=== PATIENT | male | born 1935 | race Caucasian/White ===

== ENCOUNTER 2018-07-05 09:40 | Inpatient (IN) | payer MEDICARE ==
[~2018-07-05] VITALS: Ht 167.6 cm; Wt 54.1 kg
[~2018-07-05 09:40] MED LIST: ALBU2.5V5 INH; ALBU90OI61 INH; ASPI325 PO; AZIT250 PO; AZIT500 PO; BUPR150ER PO; CEPH500 PO; CLOP75 PO; CYCL10 PO; DELTASONE20 MG PO; DOXY100 PO; DULERA 200 MCG/13 GM INH; FLUSAL5005 IH; HYDACE5 PO; IBUP600 PO; IBUP800 PO; LEVO750 PO; METO50 PO; MIRT15 PO; MONT10T PO; PRED10 PO; PRED20 PO; Prednisone20 MG PO; ROSU10TA PO; ROSUVASTATIN CA20 MG PO; SPIRIVA; TIOT18 IH; Ultram50 MG PO
[2018-07-05 10:18] LABS: BASOPHILS ABSOLUTE AUTO 0.06 K/mm3 (0.00-0.23); BASOPHILS PERCENT AUTO 1 % (0-2); EOSINOPHILS ABSOLUTE AUTO 0.12 K/mm3 (0.00-0.68); EOSINOPHILS PERCENT AUTO 1 % (0-6); Hematocrit 42.1 % (37.0-53.0); Hemoglobin 13.2 g/dL (13.5-17.5); IMMATURE GRAN ABSOLUTE AUTO 0.05 K/mm3 (0.00-0.10); IMMATURE GRAN PERCENT AUTO 1 % (0-1); LYMPHOCYTES PERCENT AUTO 31 % (21-46); MONOCYTES ABSOLUTE AUTO 1.05 K/mm3 (0.16-1.47); MONOCYTES PERCENT AUTO 11 % (4-13); Mean Corpuscular HGB Conc 31.4 g/dL (31.5-36.5); Mean Corpuscular Volume 102 fL (80-100); NEUTROPHILS PERCENT AUTO 56 % (41-73); Platelet Count 287 K/mm3 (150-400); RDW Coefficient Variation 14.5 % (11.7-14.2); RDW Standard Deviation 54.8 fL (35.1-46.3); Red Blood Cell Count 4.12 M/mm3 (4.30-5.90); White Blood Cell Count 9.38 K/mm3 (4.00-11.30)
[2018-07-05 10:35] LABS: Troponin I <0.015 ng/mL (0.000-0.040)
[2018-07-05 10:39] LABS: Alanine Aminotransfer (ALT/SGP 16 U/L (12-78); Albumin, Blood 3.6 g/dL (3.4-5.0); Alk Phos 84 U/L (50-136); Anion Gap 4 mmol/L (6-16); Aspartate Aminotrans (AST/SGOT 25 U/L (12-37); Bilirubin, Total 0.4 mg/dL (0.1-1.0); Blood Urea Nitrogen 12 mg/dL (8-24); Bun/Creatinine Ratio 13.9 (12.0-20.0); CO2, Blood 34 mmol/L (21-32); Chloride, Blood 102 mmol/L (98-108); Creatinine, Blood 0.86 mg/dL (0.60-1.20); Globulin, Blood 3.7 g/dL (2.2-4.0); Glomerular Filtration Rate >60 (60-); Glucose, Blood 90 mg/dL (70-99); Potassium, Blood 4.2 mmol/L (3.5-5.5); Sodium, Blood 140 mmol/L (136-145); Total Protein, Blood 7.3 g/dL (6.4-8.2)
[2018-07-05 11:35] LABS: PCO2 Venous 67.5 mmHg (38-42); PO2 Venous 39.8 mmHg (38-42); pH Blood Venous 7.31 (7.34-7.37)
--- NOTE | 2018-07-05 18:19 | NUR ---
SHIFT SUMMARY. 1550 NEW ADMIT FOR COPD EXACERBATION. A&OX4, SBA TO BATHROOM SECONDARY LINES, SLIGHTLY UNSTEADY. PT IS ON HOME DOSE OF O2 2L NC. LUNGS ARE TIGHT AND EXPIRATORY WHEEZES THROUGHOUT. PT REQUIRED BREATHING TX AFTER RETURNING FROM BATHROOM, RT NOTIFIED. PT DENIES N/V. PT REPORTS MILD H/A. NO OTHER CHANGES.
[2018-07-05 19:31] LABS: Adenovirus Not Detected (NOT DETECT); Bordetella pertussis Not Detected (NOT DETECT); Chlamydophila pneumoniae Not Detected (NOT DETECT); Coronavirus 229E Not Detected (NOT DETECT); Coronavirus HKU1 Not Detected (NOT DETECT); Coronavirus NL63 Not Detected (NOT DETECT); Coronavirus OC43 Not Detected (NOT DETECT); Human Metapneumovirus Not Detected (NOT DETECT); Human Rhinovirus/Enterovirus Not Detected (NOT DETECT); Influenza A Not Detected (NOT DETECT); Influenza A/2009-H1 Not Detected (NOT DETECT); Influenza A/H1 Not Detected (NOT DETECT); Influenza A/H3 Not Detected (NOT DETECT); Influenza B Not Detected (NOT DETECT); Mycoplasma pneumoniae Not Detected (NOT DETECT); Parainfluenza Virus 1 Not Detected (NOT DETECT); Parainfluenza Virus 2 Not Detected (NOT DETECT); Parainfluenza Virus 3 Detected (NOT DETECT); Parainfluenza Virus 4 Not Detected (NOT DETECT); Respiratory Syncytial Virus Not Detected (NOT DETECT)
[2018-07-06 05:22] LABS: Anion Gap 6 mmol/L (6-16); Blood Urea Nitrogen 14 mg/dL (8-24); Bun/Creatinine Ratio 18.2 (12.0-20.0); CO2, Blood 31 mmol/L (21-32); Calcium, Blood 7.5 mg/dL (8.5-10.1); Chloride, Blood 102 mmol/L (98-108); Creatinine, Blood 0.77 mg/dL (0.60-1.20); Glomerular Filtration Rate >60 (60-); Glucose, Blood 128 mg/dL (70-99); Potassium, Blood 4.4 mmol/L (3.5-5.5); Sodium, Blood 139 mmol/L (136-145)
--- NOTE | 2018-07-06 07:15 | NUR ---
*SHIFT SUMMARY* PATIENT IS ALERT AND ORIENTED, NO COMPLAINTS OF PAIN. PATIENT HAD A COUPLE EPISODES OF FEELING SHORT OF BREATH THROUGHOUT THE NIGHT THAT WERE RELIEVED WITH BREATHING TREATMENTS AND RELAXATION TECHNIQUES. PATIENT WORE NASAL CANNULA THROUGHOUT THE NIGHT. PATIENT HAD A CIWA SCORE OF ONE THROUGHOUT THE NIGHT. NO NEW CHANGES TO PATIENT'S STATUS, CALL LIGHT WITHIN REACH. BED LOWERED AND LOCKED.
--- NOTE | 2018-07-06 16:16 | NUR ---
SHIFT SUMMARY THE PATIENT PRESENTED THIS MORNING WITH VITALS WNL, A&O X4 AND WITH LUNGS THAT WERE WHEEZEY THROUGHOUT. THE PATIENT WAS PUT IN DROPLET PRECAUTION FOR INFLUEZA. THE PATIENT'S IV WAS REPLACED WITH A 20 GA ON THE LEFT FOREARM. THE PATIENT HAS BEEN INDEPENDENT IN HIS ROOM AND CALLED WHEN HE NEEDED SOMETHING. THE PATIENT IS RESTING IN HIS CHAIR AT THIS TIME, WILL CONTINUE TO MONITOR.
--- NOTE | 2018-07-07 04:52 | NUR ---
*SHIFT SUMMARY* PATIENT IS ALERT AND ORIENTED. PATIENT SLEPT OFF AND ON THROUGHOUT THE NIGHT. PATIENT HAD A COUPLE EPISODES OF SOB. RT CAME TO EVALUATE AND TREAT PATIENT. PATIENT STATES HE HAS A HEADACHE AND HE FEELS HE NEEDS TO BE SITTING UP, BROUGHT A RECLINER IN FOR PATIENT TO REST IN. OTHERWISE NO NEW CHANGES IN STATUS. PATIENT TOLERATED SWALLOWING PILLS WHOLE WITH WATER. PATIENT DOES GET SOB WITH ACTIVITY. USES CALL LIGHT APPROPRIATELY. BED LOWERED AND LOCKED.
[2018-07-07 05:21] LABS: Anion Gap 3 mmol/L (6-16); Blood Urea Nitrogen 16 mg/dL (8-24); Bun/Creatinine Ratio 21.7 (12.0-20.0); CO2, Blood 34 mmol/L (21-32); Calcium, Blood 8.1 mg/dL (8.5-10.1); Chloride, Blood 101 mmol/L (98-108); Creatinine, Blood 0.74 mg/dL (0.60-1.20); Glomerular Filtration Rate >60 (60-); Glucose, Blood 132 mg/dL (70-99); Potassium, Blood 4.6 mmol/L (3.5-5.5); Sodium, Blood 138 mmol/L (136-145)
--- NOTE | 2018-07-07 16:17 | NUR ---
SHIFT SUMMARY THE PATIENT PRESENTED THIS MORNING WITH VITALS WNL, A&O X4, AND LUNGS THAT WERE TIGHT AND WHEEZEY THOUGHOUT. THE PATIENT COMPLAINED OF SOB, ANXIETY, AND NOT BEING ABLE TO SLEEP. DR. NIEVES STATED THAT SHE WOULD PUT ORDERS IN FOR MEDICATIONS FOR THE PATIENT. THE PATIENT HAS BEEN UP TO HIS RECLINER ALL SHIFT. THE PATIENT IS RESTING AT THIS TIME, WILL CONTINUE TO MONITOR.
--- NOTE | 2018-07-07 22:41 | NUR ---
MEDICATED PATIENT FOR SLEEP AND ANXIETY AROUND 1999 SEE EMAR. PATIENT HAS BEEN ASLEEP SINCE 2099 IN RECLINER CHAIR. PATIENT SWALLOWED BEDTIME PILLS WELL WITH PUDDING. PATIENT HAS NOT HAD ANY COMPLAINTS OF PAIN FOR ME.
--- NOTE | 2018-07-08 04:44 | NUR ---
*SHIFT SUMMARY* PATIENT IS ALERT AND ORIENTED. PATIENT REQUESTED THAT HE GET HIS SLEEPING PILLS WITH HIS 2100 MEDICATIONS. PATIENT STATES HE BREATHES BETTER WHEN SITTING UP IN RECLINER CHAIR. PATIENT SLEPT THROUGHOUT THE NIGHT. NO NEW CHANGES TO PATIENT'S STATUS. CALL LIGHT WITHIN REACH, BED LOWERED AND LOCKED.
[2018-07-08 05:36] LABS: Anion Gap 5 mmol/L (6-16); Blood Urea Nitrogen 16 mg/dL (8-24); Bun/Creatinine Ratio 21.6 (12.0-20.0); CO2, Blood 34 mmol/L (21-32); Calcium, Blood 7.9 mg/dL (8.5-10.1); Chloride, Blood 100 mmol/L (98-108); Creatinine, Blood 0.74 mg/dL (0.60-1.20); Glomerular Filtration Rate >60 (60-); Glucose, Blood 121 mg/dL (70-99); Potassium, Blood 4.2 mmol/L (3.5-5.5); Sodium, Blood 139 mmol/L (136-145)
--- NOTE | 2018-07-08 17:10 | NUR ---
SHIFT SUMMARY PT HAS BEEN SLEEPING A LOT OF THE SHIFT. NO COMPLAINTS OF PAIN THIS SHIFT. PT DOES REPORT FEELING LIGHT HEADED AT TIMES. THIS RN ENCOURAGED PT TO CALL BEFORE GETTING OUT OF CHAIR OR BED FOR SAFETY. THIS RN ALSO TOLD PT TO CALL SO WE COULD CHECK HIS BP WHILE STANDING TO SEE IF BECOMES HYPOTENSIVE AND CAUSING HIM TO FEEL LIGHT HEADED. NO FURTHER COMPLAINTS THIS SHIFT. NO ACUTE CHANGES. CALL LIGHT IN REACH. WILL CONTINUE TO MONITOR AND REPORT TO ONCOMING RN.
--- NOTE | 2018-07-08 17:27 | NUR ---
Met with Mr. Mattson to discuss Advanced Care Planning. We completed a POLST. He would like us to "try" CPR, "but if it looks like I won't come back, let me go." He does not want to be "on machines." He would like Limited interventions, and a defined trial of tube feeding. POlst signed by pt and awaiting physician signature. I will remain available.
--- NOTE | 2018-07-09 04:50 | NUR ---
SHIFT SUMMARY PT HAD A GOOD NIGHT. PT HAD A HEADACHE EARLY ON IN SHIFT AND WAS TX PER EMAR. PT RESPONDED WELL AND FELL ASLEEP IN HIS CHAIR. PT DID WAKE UP AND WANTED TO MOVE TO HIS CHAIR. PT EXPERIENCED INCREASED SOB WITH EXERTION. SOB RESOLVED WITH REST. PT IS CURRENTLY SLEEPING AND BREATHING EASY. CALL LIGHT IN REACH.
--- NOTE | 2018-07-09 06:08 | NUR ---
PT TRANSFERRED FROM BED TO CHAIR AND BECAME SHORT OF BREATH. IT IS TAKING PT SOME TIME TO RECOVER. IT DOES NOT TAKE MUCH EXERTION FOR PT TO BECOME SOB. PT HAS NO OTHER COMPLAINTS. RT EVALUATED PT WELL.
--- NOTE | 2018-07-09 17:24 | NUR ---
PT HAS BEEN AOX4 AND COOPERATIVE WITH CARE. PT UP IN CHAIR ALL DAY AND WORKED WITH PT IN THE AM. PT STATED HIS SINUSES HURT AND DR NIEVES ORDERED NASAL SPRAY AND HIS O2 WAS HUMIDIFIED. PT DOING WELL WILL CONTINUE TO MONITOR.
--- NOTE | 2018-07-10 06:43 | NUR ---
SHIFT SUMMARY: PT HAS ONE EPISODE OF SOB, INABILITY TO CATCH HIS BREATH 1X. RESOLVED BY BREATHING TX FROM RT. LS WHEEZE T/O. INDEPENDENT IN ROOM; USES CALL LIGHT APPROPRIATELY. A&O X 4. 2 L VIA NC; BASELINE. MEDS WHOLE IN VANILLA PUDDING. PRN CIWA SCORE OF 0. WILL CONT TO MONITOR AND PROVIDE CARE UNTIL PRESUMED BY ONCOMING RN.
--- NOTE | 2018-07-10 17:04 | NUR ---
SHIFT SUMMARY NO ACUTE CHANGES. PATIENT HAD SEVERAL BREATHING TREATMENTS THROUGHOUT SHIFT. PATIENT MEDICATED X 1 FOR ANXIETY. PATIENT WORKED WITH PT/OT. NAPPED MOST OF AFTERNOON. CALL LIGHT IN REACH, WILL CONTINUE TO MONITOR.
[2018-07-11 05:49] LABS: Anion Gap 6 mmol/L (6-16); Blood Urea Nitrogen 23 mg/dL (8-24); Bun/Creatinine Ratio 28.6 (12.0-20.0); CO2, Blood 35 mmol/L (21-32); Calcium, Blood 7.9 mg/dL (8.5-10.1); Chloride, Blood 99 mmol/L (98-108); Glomerular Filtration Rate >60 (60-); Glucose, Blood 126 mg/dL (70-99); Potassium, Blood 4.7 mmol/L (3.5-5.5); Sodium, Blood 140 mmol/L (136-145)
--- NOTE | 2018-07-11 06:09 | NUR ---
SHIFT SUMMARY PT IS A 83 Y/O M, ADMITTED FOR ACUTE COPD EXACERBATION. HE IS A&O X 4, AND INDEPENDENT IN THE ROOM. HE IS STILL REPORTING SOB, WORSE WITH EXERTION. HE IS ON 3L OF O2 VIA NC. VITALS REMAINED STABLE. HE DENIED ANY COMPLAINTS OF PAIN OR NAUSEA. NO ACUTE CHANGES IN PT CONDITION NOTED. WILL CONTINUE TO MONITOR AND TREAT PER EMAR UNTIL HAND OFF TO DAY SHIFT.
--- NOTE | 2018-07-11 11:18 | NUR ---
Pt visit this AM. Received report from Respiratory Therapy (Juan F) that Pt is considering hospice. Spoke with Pt and she reports that she is not ready for hospice and wants to continue treatment. She plans for the high risk readmission program for COPD. Will have hospitalist sign new POLST. Will remain available.
--- NOTE | 2018-07-11 17:22 | NUR ---
Initial Visit: Palliative care consult for advanced care planning and POLST. Pt is A&O and denies pain at this time. He reports dyspnea with exertion. Pt reports current regimen is managing his dyspnea. Engaged in therapeutic conversaton about goals of care and POLST. Pt already had POLST form completed and signed by hospitalist. Discussed options of care for him as disease process takes it's coarse including comfort care and hospice. He expresses interest with this option for future need but states he would like to continue fighting at this time. Pt reports no other concerns at this time. Faxed completed POLST to medical records and [place] POLST Registry. Plan to remain available.
--- NOTE | 2018-07-11 18:11 | NUR ---
SHIFT SUMMARY NO ACUTE CHANGES. PATIENT REPORTS HE IS FEELING BETTER TODAY. PATIENT MET WITH PALLIATIVE CARE NURSE TO DISCUSS HIS POLST. POLST SIGNED AND IN CHART. PATIENT WORKED WITH PT/OT. POSSIBLE DISCHARGE TO SNF WHEN MEDICALLY READY. CALL LIGHT IN REACH
--- NOTE | 2018-07-12 04:38 | NUR ---
*SHIFT SUMMARY* PATIENT IS ALERT AND ORIENTED. PATIENT TAKES PILLS WHOLE WITH PUDDING. ON 3L NASAL CANNULA THROUGH THE NIGHT. SLEPT IN THE RECLINER THROUGHOUT THE NIGHT. THIS MORNING PATIENT STATES HE FEELS ANXIOUS AND THAT HIS MIND IS RACING AND HAS A HEADACHE. THIS RN OFFERED TYLENOL FOR PAIN, PT STATES HE DOESN'T FEEL THAT WOULD HELP BUT WOULD LIKE SOMETHING FOR ANXIETY. WILL MEDICATE PATIENT FOR ANXIETY SEE EMAR. NO CHANGES IN ACUTE CONDITION, USES CALL LIGHT APPROPRIATELY.
--- NOTE | 2018-07-12 18:19 | NUR ---
SHIFT SUMMARY PT AXO THOUGH WANTED TO SLEEP THROUGHOUT THE DAY. VITAL SIGNS STABLE. PHYSICAL THERAPY IN TO WORK WITH PT, SEE NOTE. PT INDEPENDENT TO BATHROOM. SOB WITH EXERTION. CONTINUES TO BE ON 3L VIA NC. PT DENIES PAIN AND N/V. PT SLEEPING UP IN CHAIR THROUGHOUT THE SHIFT. CALL LIGHT WITHIN REACH. PT REQUESTED PUREE DIET DUE TO HIS OWN ANXIETY. PT STATES HE LIKES IT BECAUSE HE IS ABLE TO "GET IT DOWN" INSTEAD OF FEELING LIKE HE IS CHOKING. PT REQUESTED SOME WATER (THIN). NURSE EDUCATED PT ON RISKS BUT PT PERSISTS. CHARGE NURSE AWARE.
--- NOTE | 2018-07-13 04:39 | NUR ---
SHIFT SUMMARY PT AWAKE, SITTING IN RECLINER, DURING BS REPORT. NO ACUTE DISTRESS NOTED OR REPORTED. ADMITTED FOR COPD EXAC, CURRENTLY ON 3L NC; ON 2L BASELINE HOME O2. SOB W/EXERTION, BUT IMPROVING. LUNGS T/O DIMINISHED AND TIGHT WITH SCATTERED WHEEZES. REQUESTED XANAX FOR ANXIETY AT HS. PER SHIFT REPORT, PT SLEPT ALL DAY DURING THE DAY. HAS BEEN RESTING WELL IN BED THIS AM. DOES NOT LIKE TO WOKE UP FOR CARE WHEN SLEEPING. PILLS TAKEN WHOLE WITH PUDDING; TOLERATED WELL. POSSIBLE D/C TO SNF IF BED AVAILABLE.
[2018-07-13 05:33] LABS: Hematocrit 38.6 % (37.0-53.0); Hemoglobin 12.5 g/dL (13.5-17.5); Mean Corpuscular HGB 31.6 pg (26.0-34.0); Mean Corpuscular HGB Conc 32.4 g/dL (31.5-36.5); Mean Platelet Volume 9.1 fL (9.1-12.4); Platelet Count 304 K/mm3 (150-400); RDW Coefficient Variation 13.9 % (11.7-14.2); RDW Standard Deviation 49.8 fL (35.1-46.3); Red Blood Cell Count 3.95 M/mm3 (4.30-5.90)
[2018-07-13 05:35] LABS: Mean Corpuscular Volume 98 fL (80-100)
[2018-07-13 06:02] LABS: Anion Gap 5 mmol/L (6-16); Blood Urea Nitrogen 20 mg/dL (8-24); Bun/Creatinine Ratio 24.5 (12.0-20.0); CO2, Blood 35 mmol/L (21-32); Calcium, Blood 7.8 mg/dL (8.5-10.1); Chloride, Blood 100 mmol/L (98-108); Creatinine, Blood 0.82 mg/dL (0.60-1.20); Glomerular Filtration Rate >60 (60-); Glucose, Blood 82 mg/dL (70-99); Sodium, Blood 140 mmol/L (136-145)
--- NOTE | 2018-07-13 17:28 | NUR ---
PT HAS BEEN AOX4 AND PLEASANT WITH ALL CARE. PT WORKED WITH PHYSICAL THERAPY AND HAS BEEN IN HIS CHAIR ALL DAY. PT DOINGE WELL, NO DISTRESS NOTED.
--- NOTE | 2018-07-14 04:32 | NUR ---
SHIFT SUMMARY PT ADMITTED FOR COPD EXACERBATION. HE IS ON 2 LPM O2 AND CAN RECEIVE RESPIRATORY TX'S PRN. HE IS A 1 PERSON ASSIST. HE IS ON DYSPHAGIA PRECAUTIONS (NO STRAWS, MEDS WHOLE IN YOGURT/PUDDING), BUT HE CAN DRINK ICE WATER. HE IS AWAITING PLACEMENT IN A SNF. HE HAS A HX OF COPD, CAD, HTN, AND ETOH. HIS LAST CIWA (SCORE- 0) WAS 07/10, CIWA SCORES SINCE DC'D. HE IS A&O X4. NO REMARKABLE CHANGES DURING SHIFT.
--- NOTE | 2018-07-14 16:34 | NUR ---
SHIFT SUMMARY PATIENT GETS VERY [id number] SOB AFTER EXCERTION; UP SBA FWW. ON HOME DOSE OF O2. NO PIV IN OR NEEDED. PATIENT STILL FEELING "WEAK" HOPEFUL D/C TOMORROW
--- NOTE | 2018-07-15 04:11 | NUR ---
SHIFT SUMMARY PT HAD DIFFICULTY SLEEPING LAST NIGHT AND REQUESTED HIS PRN MELATONIN. PT IS A FULL CODE, A&O X4, 1 PERSON ASSIST, ON 2 LPM O2 VIA NC. HE IS ON DYSPHAGIA PRECAUTIONS AND TAKES HIS MEDS WHOLE W/PUDDING OR YOGURT. HE IS ON LOVENOX FOR DVT PREVENTION. NO COMPLAINTS OF PAIN OR DISCOMFORT THIS SHIFT. HX: COPD, CAD, HTN, ETOH. LAST BM ON 07/14. ON CONTACT PRECAUTIONS FOR PARAINFLUENZA. AWAITING PLACEMENT IN SNF, OCTOBER DC TODAY.
[2018-07-15] MEDS ORDERED: GUAI600T33 PO (14:24)
[2018-07-15] MEDS ORDERED: DELTASONE20 MG PO (14:25)
[2018-07-15] MEDS ORDERED: DEEP SEA44 ML (14:27)
--- NOTE | 2018-07-15 16:07 | NUR ---
PT DISCHARGED TO [facility]. REPORT GIVEN TO NURSE AT [facility]. PT TRANSPORTED BY [facility].
== END 2018-07-15 15:37 | disposition home or self-care (01) | DRG 191 ==
LOC: ER 09:40 → MEDS 15:10 → ENPENDDIS 07-15 13:09 → MEDS 07-15 15:37
PROVIDERS: Emergency Medicine; Internal Medicine; ADMIT Internal Medicine
DX: J44.1 Chronic obstructive pulmonary disease with (acute) exacerbation (principal); J96.11 Chronic respiratory failure with hypoxia; E87.2 Acidosis; J10.1 Influenza due to other identified influenza virus with other respiratory manifestations; I25.10 Atherosclerotic heart disease of native coronary artery without angina pectoris; I10 Essential (primary) hypertension; F41.9 Anxiety disorder, unspecified; G47.00 Insomnia, unspecified; R13.10 Dysphagia, unspecified; E78.5 Hyperlipidemia, unspecified; F17.210 Nicotine dependence, cigarettes, uncomplicated; Z74.09 Other reduced mobility; Z91.013 Allergy to seafood; Z99.81 Dependence on supplemental oxygen; I25.2 Old myocardial infarction; Z79.02 Long term (current) use of antithrombotics/antiplatelets; Z79.82 Long term (current) use of aspirin; Z79.899 Other long term (current) drug therapy
CPT/HCPCS: 31720; 36415; 71046; 80048; 80053; 82803; 83880; 84484; 85025; 85027; 87486; 87581; 87633; 87798; 92526; 92610; 93005; 93010; 94640; 94760; 96361; 96365; 96367; 96375; 97110; 97116; 97161; 97165; 97530; 97535; 99285-25; J0696; J1650; J2405; J2920; J3010; J3475; J7030

== ENCOUNTER 2018-08-03 10:02 | Emergency (ER) | payer MEDICARE, OTHER ==
[~2018-08-03] VITALS: Ht 165.1 cm; Wt 52.6 kg
[~2018-08-03 10:02] MED LIST changes: +DEEP SEA44 ML; +GUAI600T33 PO
[2018-08-03 10:36] LABS: BASOPHILS ABSOLUTE AUTO 0.05 K/mm3 (0.00-0.23); BASOPHILS PERCENT AUTO 1 % (0-2); EOSINOPHILS ABSOLUTE AUTO 0.09 K/mm3 (0.00-0.68); EOSINOPHILS PERCENT AUTO 1 % (0-6); Hematocrit 36.8 % (37.0-53.0); Hemoglobin 11.7 g/dL (13.5-17.5); IMMATURE GRAN ABSOLUTE AUTO 0.14 K/mm3 (0.00-0.10); IMMATURE GRAN PERCENT AUTO 1 % (0-1); LYMPHOCYTES ABSOLUTE AUTO 1.91 K/mm3 (0.84-5.20); LYMPHOCYTES PERCENT AUTO 18 % (21-46); MONOCYTES ABSOLUTE AUTO 1.32 K/mm3 (0.16-1.47); MONOCYTES PERCENT AUTO 12 % (4-13); Mean Corpuscular HGB 31.7 pg (26.0-34.0); Mean Corpuscular HGB Conc 31.8 g/dL (31.5-36.5); Mean Corpuscular Volume 100 fL (80-100); Mean Platelet Volume 8.7 fL (9.1-12.4); NEUTROPHILS ABSOLUTE AUTO 7.43 K/mm3 (1.96-9.15); NEUTROPHILS PERCENT AUTO 68 % (41-73); Platelet Count 460 K/mm3 (150-400); RDW Coefficient Variation 12.9 % (11.7-14.2); RDW Standard Deviation 47.4 fL (35.1-46.3); Red Blood Cell Count 3.69 M/mm3 (4.30-5.90); White Blood Cell Count 10.94 K/mm3 (4.00-11.30)
[2018-08-03 10:51] LABS: Alanine Aminotransfer (ALT/SGP 16 U/L (12-78); Albumin, Blood 2.3 g/dL (3.4-5.0); Albumin/Globulin Ratio 0.5 (0.8-1.8); Alk Phos 77 U/L (50-136); Anion Gap 8 mmol/L (6-16); Aspartate Aminotrans (AST/SGOT 20 U/L (12-37); Bilirubin, Total 0.5 mg/dL (0.1-1.0); Blood Urea Nitrogen 6 mg/dL (8-24); CO2, Blood 30 mmol/L (21-32); Calcium, Blood 7.5 mg/dL (8.5-10.1); Chloride, Blood 96 mmol/L (98-108); Creatinine, Blood 0.54 mg/dL (0.60-1.20); Globulin, Blood 4.6 g/dL (2.2-4.0); Glomerular Filtration Rate >60 (60-); Glucose, Blood 93 mg/dL (70-99); Potassium, Blood 4.3 mmol/L (3.5-5.5); Sodium, Blood 134 mmol/L (136-145); Total Protein, Blood 6.9 g/dL (6.4-8.2); Troponin I <0.015 ng/mL (0.000-0.040)
[2018-08-03] MEDS ORDERED: LEVO750 PO (12:55)
[2018-08-03] MEDS ORDERED: Lasix20 MG PO (12:55)
== END 2018-08-03 13:10 | disposition home or self-care (01) ==
LOC: ER 10:02
PROVIDERS: Emergency Medicine
DX: R60.0 Localized edema (principal); J44.9 Chronic obstructive pulmonary disease, unspecified; I25.10 Atherosclerotic heart disease of native coronary artery without angina pectoris; I10 Essential (primary) hypertension; F17.210 Nicotine dependence, cigarettes, uncomplicated; Z99.81 Dependence on supplemental oxygen; Z91.013 Allergy to seafood; Z79.899 Other long term (current) drug therapy; Z79.82 Long term (current) use of aspirin; Z79.02 Long term (current) use of antithrombotics/antiplatelets; Z79.52 Long term (current) use of systemic steroids
CPT/HCPCS: 36415; 71046; 80053; 83880; 84484; 85025; 93005; 93010; 99284-25

== ENCOUNTER 2018-08-05 05:30 | Inpatient (IN) | payer MEDICARE ==
[~2018-08-05] VITALS: Ht 167.6 cm; Wt 53.8 kg
[~2018-08-05 05:30] MED LIST changes: +Lasix20 MG PO
[2018-08-05 06:03] LABS: BASOPHILS ABSOLUTE AUTO 0.06 K/mm3 (0.00-0.23); BASOPHILS PERCENT AUTO 1 % (0-2); EOSINOPHILS ABSOLUTE AUTO 0.01 K/mm3 (0.00-0.68); EOSINOPHILS PERCENT AUTO 0 % (0-6); Hematocrit 41.7 % (37.0-53.0); Hemoglobin 12.9 g/dL (13.5-17.5); IMMATURE GRAN ABSOLUTE AUTO 0.15 K/mm3 (0.00-0.10); IMMATURE GRAN PERCENT AUTO 1 % (0-1); LYMPHOCYTES ABSOLUTE AUTO 1.45 K/mm3 (0.84-5.20); LYMPHOCYTES PERCENT AUTO 12 % (21-46); MONOCYTES ABSOLUTE AUTO 1.39 K/mm3 (0.16-1.47); MONOCYTES PERCENT AUTO 12 % (4-13); Mean Corpuscular HGB 30.9 pg (26.0-34.0); Mean Corpuscular HGB Conc 30.9 g/dL (31.5-36.5); Mean Corpuscular Volume 100 fL (80-100); Mean Platelet Volume 8.5 fL (9.1-12.4); NEUTROPHILS ABSOLUTE AUTO 8.62 K/mm3 (1.96-9.15); NEUTROPHILS PERCENT AUTO 74 % (41-73); Platelet Count 490 K/mm3 (150-400); RDW Coefficient Variation 12.8 % (11.7-14.2); RDW Standard Deviation 47.4 fL (35.1-46.3); Red Blood Cell Count 4.18 M/mm3 (4.30-5.90); White Blood Cell Count 11.68 K/mm3 (4.00-11.30)
[2018-08-05 06:34] LABS: Troponin I 0.019 ng/mL (0.000-0.040)
[2018-08-05 06:38] LABS: Alanine Aminotransfer (ALT/SGP 15 U/L (12-78); Albumin, Blood 2.7 g/dL (3.4-5.0); Albumin/Globulin Ratio 0.6 (0.8-1.8); Alk Phos 91 U/L (50-136); Anion Gap 16 mmol/L (6-16); Aspartate Aminotrans (AST/SGOT 24 U/L (12-37); Bilirubin, Total 0.6 mg/dL (0.1-1.0); Blood Urea Nitrogen 12 mg/dL (8-24); Bun/Creatinine Ratio 19.1 (12.0-20.0); CO2, Blood 24 mmol/L (21-32); Calcium, Blood 8.6 mg/dL (8.5-10.1); Chloride, Blood 92 mmol/L (98-108); Creatinine, Blood 0.63 mg/dL (0.60-1.20); Globulin, Blood 4.8 g/dL (2.2-4.0); Glomerular Filtration Rate >60 (60-); Glucose, Blood 44 mg/dL (70-99); Potassium, Blood 4.5 mmol/L (3.5-5.5); Sodium, Blood 132 mmol/L (136-145); Total Protein, Blood 7.5 g/dL (6.4-8.2)
[2018-08-05 08:33] LABS: PCO2 Arterial 51.9 mmHg (35-45); PO2 Arterial 60.7 mmHg (80-100); pH Blood Arterial 7.39 (7.35-7.45)
[2018-08-05] MEDS ORDERED: **incomplete med rec (12:12)
[2018-08-05] MEDS ORDERED: PROAIR RESPICL90 MCG INH (12:18)
[2018-08-05] MEDS ORDERED: ALBU3IS INH (12:20)
[2018-08-05] MEDS ORDERED: ASPI81CH PO (12:21)
[2018-08-05] MEDS ORDERED: CLOP75 PO (12:22)
[2018-08-05] MEDS ORDERED: METO25ER PO (12:24)
[2018-08-05] MEDS ORDERED: MIRT15 PO (12:25)
[2018-08-05] MEDS ORDERED: MONT10T PO (12:26)
[2018-08-05] MEDS ORDERED: BUDE6HFA INH (12:26)
[2018-08-05] MEDS ORDERED: ALBU2.5V5 INH (12:28)
[2018-08-05] MEDS ORDERED: ROSUVASTATIN CA20 MG PO (12:29)
[2018-08-05] MEDS ORDERED: BUPR150ER PO (12:30)
[2018-08-05] MEDS ORDERED: COMBIVENT RESPIM4 GM INH (12:31)
[2018-08-05 17:37] LABS: Influenza A Negative (NEGATIVE); Influenza B Negative (NEGATIVE)
--- NOTE | 2018-08-05 19:12 | NUR ---
SHIFT SUMMARY: PATIENT ADMIT FROM ED THIS SHIFT; FULL ADMISSION COMPLETED. PT A&O; CALM AND COOEPRATIVE WITH CARE. PATIENT [id number] R/T SINUS CONGESTION. NO C/O PAIN SINCE ARRIVAL ON MEDICAL. X-RAY REVEALS RLL PNA & COPD; LUNGS COARSE/DIM. POOR DENTITION; PUREE DIET. TELE IN PLACE; SR @ 85 PER CATEGORY PLANNER. POOR ORAL INTAKE; POC GLUCOSE CHECKS PRN FOR S/SX OF HYPOGLYCEMIA; POC GLUCOSE MEASURED AT 122 @ 1616. IV ABX CONTINUING. REPORT GIVEN TO ONCOMING RN.
[2018-08-06 05:25] LABS: BASOPHILS ABSOLUTE AUTO 0.04 K/mm3 (0.00-0.23); BASOPHILS PERCENT AUTO 0 % (0-2); EOSINOPHILS ABSOLUTE AUTO 0.03 K/mm3 (0.00-0.68); EOSINOPHILS PERCENT AUTO 0 % (0-6); Hematocrit 35.7 % (37.0-53.0); IMMATURE GRAN ABSOLUTE AUTO 0.09 K/mm3 (0.00-0.10); IMMATURE GRAN PERCENT AUTO 1 % (0-1); LYMPHOCYTES ABSOLUTE AUTO 1.51 K/mm3 (0.84-5.20); LYMPHOCYTES PERCENT AUTO 14 % (21-46); MONOCYTES ABSOLUTE AUTO 1.39 K/mm3 (0.16-1.47); MONOCYTES PERCENT AUTO 13 % (4-13); Mean Corpuscular HGB 30.8 pg (26.0-34.0); Mean Corpuscular HGB Conc 30.8 g/dL (31.5-36.5); Mean Corpuscular Volume 100 fL (80-100); Mean Platelet Volume 8.5 fL (9.1-12.4); NEUTROPHILS ABSOLUTE AUTO 7.42 K/mm3 (1.96-9.15); NEUTROPHILS PERCENT AUTO 71 % (41-73); Platelet Count 463 K/mm3 (150-400); RDW Coefficient Variation 12.6 % (11.7-14.2); RDW Standard Deviation 46.2 fL (35.1-46.3); Red Blood Cell Count 3.57 M/mm3 (4.30-5.90); White Blood Cell Count 10.48 K/mm3 (4.00-11.30)
--- NOTE | 2018-08-06 05:29 | NUR ---
VSS, AFEBRILE, A/O, 20G L FA, BED ALARM, TELE: NSR, 2.5L NC, C/O INSOMNIA AND NOT GETTING ENOUGHT REST, ALWAYS TIRED ALL DAY LONG. SBA TO BR, IRRITABLE OVER NOC, CLUSTER CARE FOR PT'S COMFORT.
[2018-08-06 06:17] LABS: Albumin, Blood 2.1 g/dL (3.4-5.0); Anion Gap 4 mmol/L (6-16); Blood Urea Nitrogen 7 mg/dL (8-24); Bun/Creatinine Ratio 9.3 (12.0-20.0); CO2, Blood 37 mmol/L (21-32); Calcium, Blood 8.1 mg/dL (8.5-10.1); Chloride, Blood 96 mmol/L (98-108); Creatinine, Blood 0.75 mg/dL (0.60-1.20); Glomerular Filtration Rate >60 (60-); Glucose, Blood 100 mg/dL (70-99); Phosphorus, Blood 1.9 mg/dL (2.5-4.9); Potassium, Blood 4.1 mmol/L (3.5-5.5); Sodium, Blood 137 mmol/L (136-145)
--- NOTE | 2018-08-06 12:23 | NUR ---
THIS PT GAVE ME PERMISSION TO CARE FOR HIM ON 08/07/2018.
--- NOTE | 2018-08-06 18:01 | NUR ---
SHIFT SUMMARY OX3; PLEASANT, COOPERATIVE. AMBULATED IN HALLWAY TODAY FOR SHORT DISTANCE BECAME SLIGHTLY SOB AND DIZZY AFTER WALKING DOWN TO NURSES STATION AND BACK. DENIES ANY PAIN. PUREED DIET. GOOD PO INTAKE TODAY. STANDBY ASSIST FWW. FROM NURSING FACILITY.
--- NOTE | 2018-08-07 05:16 | NUR ---
08/07/18 0515 PT SLEEPING WELL THIS SHIFT. STATED EARLIER THAT HE IS JUST VERY TIRED. VITALS STABLE THIS AM AND FEVER DOWN. HEART MONITOR STABLE AT SR TO ST AT 102. NO COMPLAINTS OF PAIN THIS AM.
[2018-08-07 05:21] LABS: BASOPHILS ABSOLUTE AUTO 0.04 K/mm3 (0.00-0.23); BASOPHILS PERCENT AUTO 0 % (0-2); EOSINOPHILS ABSOLUTE AUTO 0.06 K/mm3 (0.00-0.68); EOSINOPHILS PERCENT AUTO 1 % (0-6); Hematocrit 32.4 % (37.0-53.0); Hemoglobin 10.1 g/dL (13.5-17.5); IMMATURE GRAN ABSOLUTE AUTO 0.09 K/mm3 (0.00-0.10); IMMATURE GRAN PERCENT AUTO 1 % (0-1); LYMPHOCYTES ABSOLUTE AUTO 1.59 K/mm3 (0.84-5.20); LYMPHOCYTES PERCENT AUTO 15 % (21-46); MONOCYTES ABSOLUTE AUTO 1.34 K/mm3 (0.16-1.47); MONOCYTES PERCENT AUTO 12 % (4-13); Mean Corpuscular HGB 31.4 pg (26.0-34.0); Mean Corpuscular HGB Conc 31.2 g/dL (31.5-36.5); Mean Corpuscular Volume 101 fL (80-100); Mean Platelet Volume 8.6 fL (9.1-12.4); NEUTROPHILS ABSOLUTE AUTO 7.88 K/mm3 (1.96-9.15); NEUTROPHILS PERCENT AUTO 72 % (41-73); Platelet Count 406 K/mm3 (150-400); RDW Coefficient Variation 12.7 % (11.7-14.2); RDW Standard Deviation 47.1 fL (35.1-46.3); Red Blood Cell Count 3.22 M/mm3 (4.30-5.90)
[2018-08-07 05:56] LABS: Albumin, Blood 1.9 g/dL (3.4-5.0); Anion Gap 0 mmol/L (6-16); Blood Urea Nitrogen 6 mg/dL (8-24); Bun/Creatinine Ratio 11.1 (12.0-20.0); CO2, Blood 40 mmol/L (21-32); Calcium, Blood 7.7 mg/dL (8.5-10.1); Chloride, Blood 98 mmol/L (98-108); Creatinine, Blood 0.54 mg/dL (0.60-1.20); Glomerular Filtration Rate >60 (60-); Glucose, Blood 106 mg/dL (70-99); Phosphorus, Blood 2.4 mg/dL (2.5-4.9); Potassium, Blood 3.7 mmol/L (3.5-5.5); Sodium, Blood 138 mmol/L (136-145)
--- NOTE | 2018-08-07 18:23 | NUR ---
SHIFT SUMMARY AMBULATED IN HALLWAY WITH PT. OX3. PLEASANT, CALM COOPERATIVE. STANDBY ASSIST TO BATHROOM. BOWEL CARE STARTED PER PT REQUEST. LIVES AT HOME ALONE BUT HAS HAD A RECENT STAY AT [facility]. NO VISITORS TODAY. REMAINS WEAK BUT AMBULATORY. CXR REPEATED TODAY.
[2018-08-08 06:00] LABS: BASOPHILS ABSOLUTE AUTO 0.04 K/mm3 (0.00-0.23); BASOPHILS PERCENT AUTO 0 % (0-2); EOSINOPHILS ABSOLUTE AUTO 0.06 K/mm3 (0.00-0.68); EOSINOPHILS PERCENT AUTO 1 % (0-6); Hemoglobin 10.1 g/dL (13.5-17.5); IMMATURE GRAN ABSOLUTE AUTO 0.11 K/mm3 (0.00-0.10); IMMATURE GRAN PERCENT AUTO 1 % (0-1); LYMPHOCYTES ABSOLUTE AUTO 1.63 K/mm3 (0.84-5.20); LYMPHOCYTES PERCENT AUTO 14 % (21-46); MONOCYTES ABSOLUTE AUTO 1.24 K/mm3 (0.16-1.47); MONOCYTES PERCENT AUTO 10 % (4-13); Mean Corpuscular HGB Conc 31.6 g/dL (31.5-36.5); Mean Platelet Volume 8.8 fL (9.1-12.4); NEUTROPHILS ABSOLUTE AUTO 8.81 K/mm3 (1.96-9.15); NEUTROPHILS PERCENT AUTO 74 % (41-73); Platelet Count 419 K/mm3 (150-400); RDW Coefficient Variation 12.7 % (11.7-14.2); RDW Standard Deviation 45.5 fL (35.1-46.3); Red Blood Cell Count 3.26 M/mm3 (4.30-5.90); White Blood Cell Count 11.89 K/mm3 (4.00-11.30)
[2018-08-08 06:11] LABS: Mean Corpuscular Volume 98 fL (80-100)
[2018-08-08 06:21] LABS: Anion Gap 3 mmol/L (6-16); Blood Urea Nitrogen 6 mg/dL (8-24); Bun/Creatinine Ratio 12.1 (12.0-20.0); CO2, Blood 35 mmol/L (21-32); Chloride, Blood 99 mmol/L (98-108); Creatinine, Blood 0.49 mg/dL (0.60-1.20); Glomerular Filtration Rate >60 (60-); Glucose, Blood 93 mg/dL (70-99); Sodium, Blood 137 mmol/L (136-145)
--- NOTE | 2018-08-08 06:26 | NUR ---
SHIFT SUMMARY PT SLEPT WELL T/O NIGHT. AOX4. VSS. DENIES N/V. REPORTS A HEADACHE FOR THE LAST 2 DAYS, MEDICATED W/TYLENOL PER ORDERS FOR 5/10 PAIN. PT ALSO MEDICATED 1 OTHER TIME W/TYLENOL BECAUSE PT REPORTED "CHILLS" BUT FELT HOT TO TOUCH W/O HIGH TEMPERATURE, PT DID HAVE LOTS OF BLANKETS ON & WOULD NOT LET ME TAKE ANY OFF. PT REPORTS SOB EVEN @REST, MEDICATED W/BREATHING TX & REPORTS THEY HELP HIS BREATHING. PT ON 3L W/SPO2 @90-92%. PT IS IRRITABLE W/STAFF @TIMES. CALL LIGHT IS IN REACH & I WILL CONT TO MONITOR PT.
--- NOTE | 2018-08-08 17:28 | NUR ---
SUMMARY PT RESTING QUIETLY IN BED, WAKES EASILY, PT HAS BEEN UP IN THE ROOM WITH MIN ASSIST, BUT GETS DYSPNEIC VERY QUICKLY, PT IS PLEASANT AND COOPERATIVE WITH CARE, VSS, NO ACUTE CHANGES, WILL CONT TO MONITOR
[2018-08-09 05:56] LABS: BASOPHILS ABSOLUTE AUTO 0.05 K/mm3 (0.00-0.23); BASOPHILS PERCENT AUTO 1 % (0-2); EOSINOPHILS ABSOLUTE AUTO 0.05 K/mm3 (0.00-0.68); EOSINOPHILS PERCENT AUTO 1 % (0-6); Hematocrit 33.4 % (37.0-53.0); Hemoglobin 10.4 g/dL (13.5-17.5); IMMATURE GRAN ABSOLUTE AUTO 0.09 K/mm3 (0.00-0.10); IMMATURE GRAN PERCENT AUTO 1 % (0-1); LYMPHOCYTES ABSOLUTE AUTO 1.89 K/mm3 (0.84-5.20); LYMPHOCYTES PERCENT AUTO 18 % (21-46); MONOCYTES ABSOLUTE AUTO 1.29 K/mm3 (0.16-1.47); MONOCYTES PERCENT AUTO 12 % (4-13); Mean Corpuscular HGB 31.2 pg (26.0-34.0); Mean Corpuscular HGB Conc 31.1 g/dL (31.5-36.5); Mean Corpuscular Volume 100 fL (80-100); Mean Platelet Volume 8.9 fL (9.1-12.4); NEUTROPHILS ABSOLUTE AUTO 7.33 K/mm3 (1.96-9.15); NEUTROPHILS PERCENT AUTO 68 % (41-73); Platelet Count 488 K/mm3 (150-400); RDW Coefficient Variation 12.9 % (11.7-14.2); RDW Standard Deviation 47.9 fL (35.1-46.3); Red Blood Cell Count 3.33 M/mm3 (4.30-5.90)
--- NOTE | 2018-08-09 06:40 | NUR ---
SHIFT SUMMARY PT SLEPT WELL T/O NIGHT. AOX4. DENIES N/V. REPORTS 5/10 PAIN FOR A HEADACHE, MEDICATED 1X W/TYLENOL PER ORDERS. REPORTS SOB AFTER GETTING UP & WALKING TO RESTROOM OR W/ANY EXERTION, DESCRIBES IT "IT FEELS LIKE A BAND IS SQUEEZING AROUND MY CHEST & MAKING IT SO I CAN'T BREATH." PT GIVEN MULTIPLE BREATHING TX PRN PER ORDERS. SPO2 >90% ON 2.5L. PT CAN BE IRRITABLE W/STAFF @TIMES. CALL LIGHT IS IN REACH & I WILL CONT TO MONITOR PT.
--- NOTE | 2018-08-09 17:20 | NUR ---
SUMMARY PT RESTING IN BED WATCHING TV, PT HAS BEEN PLEASANT AND COOPERATIVE WITH CARE, PT WORKED WITH THERAPY TODAY, PLAN TO GO TO SNF SAT OR SUN, PT STILL NEEDS TO HAVE A BM, BOWEL CARE STARTED, PT DRINKING PRUNE JUICE, VSS, NO ACUTE CHANGES, WILL CONT TO MONITOR
[2018-08-10 05:04] LABS: BASOPHILS ABSOLUTE AUTO 0.05 K/mm3 (0.00-0.23); BASOPHILS PERCENT AUTO 1 % (0-2); EOSINOPHILS ABSOLUTE AUTO 0.04 K/mm3 (0.00-0.68); EOSINOPHILS PERCENT AUTO 0 % (0-6); Hematocrit 32.3 % (37.0-53.0); IMMATURE GRAN ABSOLUTE AUTO 0.09 K/mm3 (0.00-0.10); IMMATURE GRAN PERCENT AUTO 1 % (0-1); LYMPHOCYTES ABSOLUTE AUTO 1.96 K/mm3 (0.84-5.20); LYMPHOCYTES PERCENT AUTO 20 % (21-46); MONOCYTES ABSOLUTE AUTO 1.15 K/mm3 (0.16-1.47); MONOCYTES PERCENT AUTO 12 % (4-13); Mean Corpuscular HGB 30.6 pg (26.0-34.0); Mean Corpuscular Volume 99 fL (80-100); Mean Platelet Volume 8.7 fL (9.1-12.4); NEUTROPHILS ABSOLUTE AUTO 6.32 K/mm3 (1.96-9.15); NEUTROPHILS PERCENT AUTO 66 % (41-73); Platelet Count 462 K/mm3 (150-400); RDW Coefficient Variation 12.8 % (11.7-14.2); RDW Standard Deviation 46.4 fL (35.1-46.3); Red Blood Cell Count 3.27 M/mm3 (4.30-5.90); White Blood Cell Count 9.61 K/mm3 (4.00-11.30)
[2018-08-10 05:50] LABS: Anion Gap 4 mmol/L (6-16); Blood Urea Nitrogen 6 mg/dL (8-24); Bun/Creatinine Ratio 9.5 (12.0-20.0); CO2, Blood 38 mmol/L (21-32); Calcium, Blood 8.4 mg/dL (8.5-10.1); Chloride, Blood 94 mmol/L (98-108); Creatinine, Blood 0.63 mg/dL (0.60-1.20); Glomerular Filtration Rate >60 (60-); Glucose, Blood 105 mg/dL (70-99); Sodium, Blood 136 mmol/L (136-145)
--- NOTE | 2018-08-10 06:30 | NUR ---
pt had several bowel movements with agressive bowel care. he first had pelleted small stool then medium loose stool. he had sat 99% on 3 l nc. up in room independent. co headache pain relieved by tylenol 650 mg po x 1.
--- NOTE | 2018-08-10 16:46 | NUR ---
SUMMARY- PT ALERT AND INDEPENDANT IN ROOM TO BATHROOM. PT HAVING LOOSE STOOLS TODAY S/P LAXATIVES. LUNGS WITH CRACKLES IN THE BASES. MAINTAINING SATS ON 3L 02. STATES PRODUCTIVE COUGH THAT HE SWALLOWS SECRETIONS. HAS OCCASIONAL COUGHING EPISODES AND CAN'T STOP, CALLED [facility] AND OBTAINED ORDER FOR CEACOL LOZENGE. HELPFUL TO RELEIVE COUGH. TOLERATING FOOD AND FLUIDS AND ASKED FOR SNACK INBETWEEN LUNCH AND DINNER. TOLERATES ACTIVITY WITH MIN DYSPNIA ON EXERTION. WILL REOPRT TO STACY HUIZAR.
--- NOTE | 2018-08-11 04:17 | NUR ---
83 year old Male smoker daily for 70 plus years educated on hazards of smoking and tips for smoking cessation. PT encouraged to stop smoking and he says he has no plans to stop to throw the educational materials in the trash. Pt says he has attempted to stop smoking multiple times without success and everyone he knows smokes. on oxygen 3 l nc and sats greater than 90%. constipation relieved with agressive bowel care. appetite improved. tolerating diet and activity, baseline oxygen use. able to communicate. Scheduled and PRN neb helpful for co severe dyspnea. PT educated on role of tobacco smoke in acute resp failure, copd.
[2018-08-11 09:35] LABS: Percent Saturation 9.1 % (20.0-50.0)
--- NOTE | 2018-08-11 16:28 | NUR ---
SHIFT SUMMARY NO CHANGES IN ASSESSMENT AT THIS TIME. VSS. PT IND IN ROOM & BATHROOM. PT STATES HE IS NO LONGER CONSTIPATED. PT ON 2.5L O2 VIA NC. PT COOPERATIVE THIS SHIFT. PT RESTING IN BED. CALL LIGHT IN REACH. DENIES OTHER NEEDS AT THIS TIME. WILL CONTINUE TO MONITOR UNTIL TURNOVER IS COMPLETE.
--- NOTE | 2018-08-12 04:23 | NUR ---
PT APPEARS MORE IRRITABLE AND DYSPENIC THIS SHIFT. CALL FREQUENTLY FOR NEB TREATMENT. DENIES PAIN OR CONSTIPATION, SOB AT REST OR WITH ACTIVITY. CONTINUES ON BASELINE 2.5 TO 3 L NC OXYGEN AND NEB USE. SAYS HE WILL NOT STOP SMOKING ALL HIS FRIENDS AND FAMILY SMOKE. ENCOURAGED CESSATION .
[2018-08-12 05:32] LABS: Hematocrit 32.3 % (37.0-53.0); Mean Corpuscular HGB 30.5 pg (26.0-34.0); Mean Corpuscular Volume 99 fL (80-100); Mean Platelet Volume 8.6 fL (9.1-12.4); Platelet Count 493 K/mm3 (150-400); RDW Coefficient Variation 12.9 % (11.7-14.2); RDW Standard Deviation 46.5 fL (35.1-46.3); Red Blood Cell Count 3.28 M/mm3 (4.30-5.90)
[2018-08-12 06:01] LABS: Anion Gap 3 mmol/L (6-16); Blood Urea Nitrogen 6 mg/dL (8-24); Bun/Creatinine Ratio 9.2 (12.0-20.0); CO2, Blood 35 mmol/L (21-32); Calcium, Blood 8.1 mg/dL (8.5-10.1); Chloride, Blood 98 mmol/L (98-108); Creatinine, Blood 0.65 mg/dL (0.60-1.20); Glomerular Filtration Rate >60 (60-); Glucose, Blood 91 mg/dL (70-99); Phosphorus, Blood 2.4 mg/dL (2.5-4.9); Potassium, Blood 4.4 mmol/L (3.5-5.5); Sodium, Blood 136 mmol/L (136-145)
--- NOTE | 2018-08-12 17:11 | NUR ---
SHIFT SUMMARY PT AXO, PLEASANT AND MOSTLY COOPERATIVE WITH CARE THOUGH REFUSED SMOKING CESSATION EDUCATION. NO ACUTE CHANGES THIS SHIFT. PT REPORTS BOREDOM R/T NOT BEING ABLE TO WATCH TELEVISION WITH THE POWER OUTAGE. BED IN LOW POSITION, CALL LIGHT WITHIN REACH.
--- NOTE | 2018-08-13 04:07 | NUR ---
SHIFT SUMMARY: PT IS ALERT AND ORIENTED. PT IS CALM AND COOPERATIVE WITH CARE. PT CALLS APPROPRIATELY. PT IS A STANDBY ASSIST FOR TRANSFERS AND AMBULATION. PT REPORTS SOB UPON EXERTION, O2 2.5 L VIA NC, BASELINE. PT DENIES PAIN, NAUSEA, AND VOMITING. PT SLEPT MUCH OF THE NIGHT. NO ACUTE CHANGES OR COMPLICATIONS THIS SHIFT. BED IN LOW POSITION, CALL LIGHT WITHIN REACH.
--- NOTE | 2018-08-13 17:39 | NUR ---
PT A/OX3, PLEASANT AND COOPERATIVE, THE PT IS UP IND IN HIS ROOM, THE PT IS ON 3L/MIN O2 VIA NC, WHICH THE PT STATES IS HIS BASE LINE 2-3L/MIN, THE PT DENIED ANY PAIN TODAY, CALL LIGHT IN REACH, DISCHARGED PLANNED IN THE AM 08/14/18, NO OTHER CHANGES NOTICED THIS SHIFT
--- NOTE | 2018-08-14 04:28 | NUR ---
SHIFT SUMMARY NO ACUTE CHANGES. PT CONTINUED ON 3 L O2, WEARING 2-3 L AT BASELINE. INDEPENDENT IN THE ROOM. NO COMPLAINTS OF PAIN OR DISCOMFORT. SLEPT WELL WHEN NOT BEING WOKEN BY STAFF. PLAN TO D/C HOME TODAY WHEN PT'S RIDE IS AVAILABLE. WILL CONTINUE TO MONITOR AND REPORT TO DAY RN.
[2018-08-14] MEDS ORDERED: ASPI81CH PO (11:33)
[2018-08-14] MEDS ORDERED: CEPACOL SORE T1 EACH MM (11:37)
[2018-08-14] MEDS ORDERED: K-Phos Origina500 MG PO (11:38)
[2018-08-14] MEDS ORDERED: GAVILAX17 GM PO (11:39)
[2018-08-14] MEDS ORDERED: DEEP SEA44 ML (11:41)
[2018-08-14] MEDS ORDERED: GUAI600T33 PO (11:44)
--- NOTE | 2018-08-14 12:57 | NUR ---
PT DISCHARGED PT VERBALIZED UNDERSTANDING OF THE DISCHARGE INSTRUCTIONS, PTS PERSCRIPTIONS WERE FAXED TO [facility] HE REQUESTED, THE PT WAS IRRITATED AT DISCHARGE AND DECLINED TO TAKE SOME OF HIS BELONGINGS WITH HIM, THE PT WAS TRANSFERED VIA WHEELCHAIR WITH OXYGEN TO THE ADMMISSIONS LOBBY TO [facility] HIS RIDE, WE POFFERED TO CALL THE [facility]AXI FOR HIM, HOWEVER HE SAID HE PREFERED TO DO IT HIMSELF AND WANTED TO WAIT DOWNSTAIRS FOR HIS RIDE
== END 2018-08-14 12:05 | disposition home health service (06) | DRG 871 ==
LOC: ER 05:30 → SURS 07:48 → MEDS 09:49 → EDBEDREQ 12:35 → ERHOLD 12:39 → MEDS 15:52
PROVIDERS: Emergency Medicine; Internal Medicine; ADMIT Internal Medicine
DX: A41.9 Sepsis, unspecified organism (principal); J96.21 Acute and chronic respiratory failure with hypoxia; J69.0 Pneumonitis due to inhalation of food and vomit; J44.1 Chronic obstructive pulmonary disease with (acute) exacerbation; J44.0 Chronic obstructive pulmonary disease with (acute) lower respiratory infection; R64 Cachexia; B37.0 Candidal stomatitis; J90 Pleural effusion, not elsewhere classified; E87.1 Hypo-osmolality and hyponatremia; R65.20 Severe sepsis without septic shock; Y95 Nosocomial condition; E16.2 Hypoglycemia, unspecified; D63.8 Anemia in other chronic diseases classified elsewhere; I25.10 Atherosclerotic heart disease of native coronary artery without angina pectoris; D47.3 Essential (hemorrhagic) thrombocythemia; K59.00 Constipation, unspecified; I10 Essential (primary) hypertension; F17.210 Nicotine dependence, cigarettes, uncomplicated; I25.2 Old myocardial infarction; Z99.81 Dependence on supplemental oxygen; Z95.5 Presence of coronary angioplasty implant and graft; Z91.013 Allergy to seafood; Z79.02 Long term (current) use of antithrombotics/antiplatelets; Z79.82 Long term (current) use of aspirin; Z79.52 Long term (current) use of systemic steroids; Z79.899 Other long term (current) drug therapy
CPT/HCPCS: 36415; 36600; 71046; 80048; 80053; 80069; 82607; 82728; 82746; 82803; 82947; 83540; 83550; 83605; 83880; 84145; 84484; 85025; 85027; 87040; 87804; 92610; 93005; 93010; 93306; 94640; 94667; 94760; 96365; 96366; 96367; 96372-59; 96375; 97110; 97116; 97162; 97530; 99284-25; 99285-25; J0456; J0696; J1650; J1940; J2405; J3010; J7050

== ENCOUNTER 2020-09-13 12:54 | Observation (INO) | payer MEDICARE, OTHER ==
[~2020-09-13] VITALS: Ht 167.6 cm; Wt 47.5 kg
[~2020-09-13 12:54] MED LIST changes: +**incomplete med rec; +ALBU3IS INH; +ASPI81CH PO; +Aspirin EC81 MG PO; +BUDE6HFA INH; +CEPACOL SORE T1 EACH MM; +COMBIVENT RESPIM4 GM INH; +K-Phos Origina500 MG PO; +METO25ER PO; +MIRALAX17 GM PO; +PROAIR RESPICL90 MCG INH
[2020-09-13 13:37] LABS: BASOPHILS ABSOLUTE AUTO 0.09 K/mm3 (0.00-0.23); BASOPHILS PERCENT AUTO 1 % (0-2); EOSINOPHILS ABSOLUTE AUTO 0.31 K/mm3 (0.00-0.68); EOSINOPHILS PERCENT AUTO 4 % (0-6); Hematocrit 40.6 % (37.0-53.0); Hemoglobin 13.2 g/dL (13.5-17.5); IMMATURE GRAN ABSOLUTE AUTO 0.04 K/mm3 (0.00-0.10); IMMATURE GRAN PERCENT AUTO 1 % (0-1); LYMPHOCYTES ABSOLUTE AUTO 1.98 K/mm3 (0.84-5.20); LYMPHOCYTES PERCENT AUTO 25 % (21-46); MONOCYTES ABSOLUTE AUTO 0.93 K/mm3 (0.16-1.47); MONOCYTES PERCENT AUTO 12 % (4-13); Mean Corpuscular HGB 31.9 pg (26.0-34.0); Mean Corpuscular HGB Conc 32.5 g/dL (31.5-36.5); Mean Corpuscular Volume 98 fL (80-100); Mean Platelet Volume 8.8 fL (9.1-12.4); NEUTROPHILS ABSOLUTE AUTO 4.72 K/mm3 (1.96-9.15); NEUTROPHILS PERCENT AUTO 59 % (41-73); Platelet Count 304 K/mm3 (150-400); RDW Coefficient Variation 12.3 % (11.7-14.2); RDW Standard Deviation 44.6 fL (35.1-46.3); Red Blood Cell Count 4.14 M/mm3 (4.30-5.90); White Blood Cell Count 8.07 K/mm3 (4.00-11.30)
[2020-09-13 13:58] LABS: Alanine Aminotransfer (ALT/SGP 21 U/L (12-78); Albumin, Blood 3.8 g/dL (3.4-5.0); Albumin/Globulin Ratio 0.9 (0.8-1.8); Alk Phos 92 U/L (50-136); Anion Gap 10 mmol/L (6-16); Aspartate Aminotrans (AST/SGOT 27 U/L (12-37); Bilirubin, Total 0.5 mg/dL (0.1-1.0); Blood Urea Nitrogen 16 mg/dL (8-24); Bun/Creatinine Ratio 31.1 (12.0-20.0); CO2, Blood 31 mmol/L (21-32); Calcium, Blood 8.8 mg/dL (8.5-10.1); Chloride, Blood 85 mmol/L (98-108); Creatinine, Blood 0.51 mg/dL (0.60-1.20); Globulin, Blood 4.2 g/dL (2.2-4.0); Glomerular Filtration Rate >60 (60-); Glucose, Blood 60 mg/dL (70-99); Potassium, Blood 4.8 mmol/L (3.5-5.5); Sodium, Blood 126 mmol/L (136-145); Troponin I <0.015 ng/mL (0.000-0.040)
[2020-09-13 18:37] LABS: Source, Urine Clean Catch
[2020-09-13 18:46] LABS: Bilirubin, Urine Neg (Neg); Blood, Urine 1+ (Neg); Glucose Qualitative, Urine Neg (Neg); Ketones, Urine 4+ (Neg); Leukocyte Esterase, Urine Neg (Neg); Nitrite, Urine Neg (Neg); Protein, Urine Neg (Neg); Specific Gravity, Urine 1.025 (1.003-1.022); Urobilinogen, Urine NORM (Normal)
[2020-09-13 18:47] LABS: Appearance, Urine Clear (Clear); Color, Urine Yellow (P-Yellow)
[2020-09-13 18:56] LABS: Spermatozoa Few /hpf
[2020-09-13 18:57] LABS: Bacteria Not Seen /hpf; Hyaline Casts 0-2 /lpf (0-2); Red Blood Cells, Urine 0-2 /hpf (0-2); Squamous Epithelial Cells Few /hpf (Few); White Blood Cells, Urine 0-2 /hpf (0-5)
[2020-09-13] MEDS ORDERED: COMBIVENT RESPIM4 G1 INH (21:19)
[2020-09-13] MEDS ORDERED: SYMBICORT 16010.2 GM INH (21:20)
[2020-09-14 05:51] LABS: BASOPHILS ABSOLUTE AUTO 0.09 K/mm3 (0.00-0.23); BASOPHILS PERCENT AUTO 1 % (0-2); EOSINOPHILS ABSOLUTE AUTO 0.38 K/mm3 (0.00-0.68); EOSINOPHILS PERCENT AUTO 5 % (0-6); Hematocrit 34.6 % (37.0-53.0); Hemoglobin 11.4 g/dL (13.5-17.5); IMMATURE GRAN ABSOLUTE AUTO 0.04 K/mm3 (0.00-0.10); IMMATURE GRAN PERCENT AUTO 1 % (0-1); LYMPHOCYTES ABSOLUTE AUTO 1.72 K/mm3 (0.84-5.20); LYMPHOCYTES PERCENT AUTO 22 % (21-46); MONOCYTES ABSOLUTE AUTO 0.96 K/mm3 (0.16-1.47); MONOCYTES PERCENT AUTO 12 % (4-13); Mean Corpuscular HGB 32.7 pg (26.0-34.0); Mean Corpuscular HGB Conc 32.9 g/dL (31.5-36.5); Mean Corpuscular Volume 99 fL (80-100); Mean Platelet Volume 8.6 fL (9.1-12.4); NEUTROPHILS ABSOLUTE AUTO 4.73 K/mm3 (1.96-9.15); NEUTROPHILS PERCENT AUTO 60 % (41-73); Platelet Count 218 K/mm3 (150-400); RDW Coefficient Variation 12.3 % (11.7-14.2); RDW Standard Deviation 44.8 fL (35.1-46.3); Red Blood Cell Count 3.49 M/mm3 (4.30-5.90); White Blood Cell Count 7.92 K/mm3 (4.00-11.30)
[2020-09-14 06:13] LABS: Alanine Aminotransfer (ALT/SGP 16 U/L (12-78); Albumin, Blood 2.9 g/dL (3.4-5.0); Albumin/Globulin Ratio 0.8 (0.8-1.8); Alk Phos 71 U/L (50-136); Anion Gap 8 mmol/L (6-16); Aspartate Aminotrans (AST/SGOT 21 U/L (12-37); Bilirubin, Total 0.5 mg/dL (0.1-1.0); Blood Urea Nitrogen 14 mg/dL (8-24); Bun/Creatinine Ratio 33.9 (12.0-20.0); CO2, Blood 29 mmol/L (21-32); Chloride, Blood 95 mmol/L (98-108); Creatinine, Blood 0.41 mg/dL (0.60-1.20); Globulin, Blood 3.5 g/dL (2.2-4.0); Glomerular Filtration Rate >60 (60-); Glucose, Blood 50 mg/dL (70-99); Potassium, Blood 4.2 mmol/L (3.5-5.5); Sodium, Blood 132 mmol/L (136-145); Total Protein, Blood 6.4 g/dL (6.4-8.2)
--- NOTE | 2020-09-14 06:16 | NUR ---
PT ADMIT THIS SHIFT TO ROOM 312, A/O ELEM BUT VERY PLEASANT. HX OF COPD, PT IS VERY WEAK, USES CALL LIGHT TO APPROPRIATELY. 1-ASSIST TO BSC, TELE IN SR. PT PULLED OUT IV THIS SHIFT ACCIDENTALLY, NEW IV ACCESS OBTAINED IN LEFT FA WITH 22 GAUGE. PT DID HAVE A SMALL BM THIS SHIFT.
--- NOTE | 2020-09-14 17:50 | NUR ---
NO ACUTE CHANGES. PT IS ALERT AND ABLE TO EXPRESS HIS NEEDS. PT REMAINS WEAK , WORKED WITH PT AND OT. CALL LIGHT WITHIN REACH.
--- NOTE | 2020-09-14 19:31 | NUR ---
AWAKE. ASSISTED TO AND FROM BEDSIDE COMMODE. ALERT AND ORIENTED X 4. O2 AT 2L/MIN PER NC. CALL LIGHT IN REACH
--- NOTE | 2020-09-14 21:53 | NUR ---
VOICED PAIN OF IV SITE WHILE ABX INFUSING. SITE DLUSHED, NO S/S LEAK, PROBLEMS. VOICED SITE BETTER POST IV INFUSION. WILL CONTINUE TO MONITOR/ASSESS. IF FURTHER ISSUES WILL DC AND START ANOTHER SITE
--- NOTE | 2020-09-15 03:52 | NUR ---
SHIFT SUMMARY HAS BEEN RESTING WITH INTERMITTENT COUGHING THROUGHOUT SHIFT SINCE HS WITH O2 PER NC AT 3-4L/MIN PER NC. UP TO BEDSIDE COMMODE WITH ASSIST A FEW TIMES. OTHERWISE WITHOUT C/O VOICED. CALL LIGHT IN REACH. HOB REMAINS AT 45 DEGREES OR HIGHER FOR COMFORT.
[2020-09-15 05:02] LABS: BASOPHILS ABSOLUTE AUTO 0.02 K/mm3 (0.00-0.23); BASOPHILS PERCENT AUTO 0 % (0-2); EOSINOPHILS ABSOLUTE AUTO 0.01 K/mm3 (0.00-0.68); EOSINOPHILS PERCENT AUTO 0 % (0-6); Hematocrit 31.7 % (37.0-53.0); Hemoglobin 10.4 g/dL (13.5-17.5); IMMATURE GRAN ABSOLUTE AUTO 0.03 K/mm3 (0.00-0.10); IMMATURE GRAN PERCENT AUTO 1 % (0-1); LYMPHOCYTES ABSOLUTE AUTO 1.06 K/mm3 (0.84-5.20); LYMPHOCYTES PERCENT AUTO 18 % (21-46); MONOCYTES ABSOLUTE AUTO 0.89 K/mm3 (0.16-1.47); MONOCYTES PERCENT AUTO 15 % (4-13); Mean Corpuscular HGB 31.6 pg (26.0-34.0); Mean Corpuscular HGB Conc 32.8 g/dL (31.5-36.5); Mean Corpuscular Volume 96 fL (80-100); Mean Platelet Volume 8.9 fL (9.1-12.4); NEUTROPHILS ABSOLUTE AUTO 3.82 K/mm3 (1.96-9.15); NEUTROPHILS PERCENT AUTO 66 % (41-73); Platelet Count 230 K/mm3 (150-400); RDW Standard Deviation 42.9 fL (35.1-46.3); Red Blood Cell Count 3.29 M/mm3 (4.30-5.90); White Blood Cell Count 5.83 K/mm3 (4.00-11.30)
[2020-09-15 05:21] LABS: Anion Gap 1 mmol/L (6-16); Blood Urea Nitrogen 15 mg/dL (8-24); Bun/Creatinine Ratio 31.8 (12.0-20.0); CO2, Blood 36 mmol/L (21-32); Calcium, Blood 8.3 mg/dL (8.5-10.1); Chloride, Blood 95 mmol/L (98-108); Creatinine, Blood 0.47 mg/dL (0.60-1.20); Glomerular Filtration Rate >60 (60-); Glucose, Blood 211 mg/dL (70-99); Potassium, Blood 3.9 mmol/L (3.5-5.5); Sodium, Blood 132 mmol/L (136-145)
--- NOTE | 2020-09-15 17:34 | NUR ---
NO ACUTE CHANGES. PT HAS BEEN ENCOURAGED TO EAT. HE IS A SBA TO THE [facility]. PT REMAINS ON 02 WHICH IS HIS BASE LINE. NO COMPLAINTS THIS SHIFT. CALL LIGHT WITHIN REACH.
--- NOTE | 2020-09-16 05:07 | NUR ---
SHIFT SUMMARY PT BECOMES SOB WITH ONLY MINIMAL EXERTION. BECOMES ANXIOUS AT TIMES ASSOCIATED WITH THE SOB. PT ON 3 L VIA NC. PT'S BASELINE IS 2-3 L. PT REPORTED SOME DIFFICULTY WITH SWALLOWING PILLS. TOLERATED BETTER TAKING WITH PUDDING. TELEMETRY MONITORING READING SR 83. PT'S LUNG SOUNDS MOIST THROUGHOUT. NO COUGH NOTED. VITAL SIGNS STABLE. WILL CONTINUE TO MONITOR.
--- NOTE | 2020-09-16 17:57 | NUR ---
SHIFT SUMMARY PATIENT DENIES PAIN, NAUSEA, AND SHORTNESS OF BREATH. PATIENT REPORTS FEELING WEAK WITH TRANSFERS BUT IS ABLE TO TRANSFER SBA TO BSC. MAINTAINING OXYGEN SATURATION ABOVE 92% ON 2L/NC. PO INTAKE IMPROVED TO 50% AT MEALTIME. REPORTS HIS EYES FEEL "ITCHY" THIS AFTERNOON AND BELIEVES HIS NICOTINE PATCH TO BE THE CAUSE. PER PATIENT REQUEST NICOTINE PATCH REMOVED. COLD CLOTH APPLIED TO EYES, PATIENT REPORTS IMPROVEMENT. WORKED WITH PT AND OT.
--- NOTE | 2020-09-17 05:18 | NUR ---
SHIFT SUMMARY NO ACUTE EVENTS THIS EVENING. PT REMAINED ON 2 L VIA NC WHICH IS PT'S BASELINE DOSE OF O2. PT DOES CONTINUE TO GET SOB WITH EXERTION AND DOES COMPLAIN OF SOME PLEURITIC PAIN AFTER EXERTION. RECOVERS WELL WITH REST. NO COMPLAINTS OF PAIN OTHERWISE. PT SLEPT MUCH OF THE NIGHT. HYPOTENSIVE AT HS WITH IMPROVEMENT THIS AM. PT ASYMPTOMATIC. PT RESTING IN BED AT THIS TIME. WILL CONTINUE TO MONITOR.
--- NOTE | 2020-09-17 19:32 | NUR ---
SHIFT SUMMARY PATIENT DENIES PAIN, NAUSEA, AND SHORTNESS OF BREATH. PATIENT MAINTAINING OXYGEN STURATION ABOVE 95% ON 2L/NC. PATIENT UP SBA TO BSC. PATIENT WORKED WITH OT TODAY, MOCA SCORE OF 16/30 REFLECTS MODERATE COGNITIVE IMPAIREMENT. PATIENT HAD MODIFIED BARRIUM SWALL EVAL TODAY THAT REVEALED PATIENT CANNOT SAFELY SWALLOW. PATIENT VERY UPSET ABOUT NPO STATUS. PALLIATIVE CARE CONSULTED. PATIENT WOULD LIKE TO MEET WITH PALLIATIVE CARE AND HOSPITALIST TOMORROW TO DISCUSS OPTIONS.
[2020-09-18 04:52] LABS: Hematocrit 34.8 % (37.0-53.0); Hemoglobin 11.6 g/dL (13.5-17.5); Mean Corpuscular HGB 32.3 pg (26.0-34.0); Mean Corpuscular HGB Conc 33.3 g/dL (31.5-36.5); Mean Corpuscular Volume 97 fL (80-100); Mean Platelet Volume 9.1 fL (9.1-12.4); Platelet Count 245 K/mm3 (150-400); RDW Coefficient Variation 12.2 % (11.7-14.2); RDW Standard Deviation 43.8 fL (35.1-46.3); Red Blood Cell Count 3.59 M/mm3 (4.30-5.90); White Blood Cell Count 4.33 K/mm3 (4.00-11.30)
--- NOTE | 2020-09-18 05:02 | NUR ---
SYSTEMS ARCHITECTURE ANALYST SUMMARY PT A/O X4. REMAINS ON 2L O2 VIA NC MAINTAINING GOOD SATS. PT HAS BEEN IRRITIBLE OVERNIGHT BECAUSE IT HAD BEEN BUSY DURING DAY SHIFT MANY STAFF WERE COMING IN AND OUT. STANDBY ASSIST TO BSC. DENIES SOB, NAUSEA, PAIN. CALL LIGHT WITHIN REACH, BED ALARM ON. VSS.
[2020-09-18 05:12] LABS: Anion Gap 3 mmol/L (6-16); Blood Urea Nitrogen 14 mg/dL (8-24); Bun/Creatinine Ratio 36.7 (12.0-20.0); CO2, Blood 35 mmol/L (21-32); Calcium, Blood 8.6 mg/dL (8.5-10.1); Chloride, Blood 93 mmol/L (98-108); Creatinine, Blood 0.38 mg/dL (0.60-1.20); Glomerular Filtration Rate >60 (60-); Glucose, Blood 127 mg/dL (70-99); Potassium, Blood 4.1 mmol/L (3.5-5.5); Sodium, Blood 131 mmol/L (136-145)
--- NOTE | 2020-09-18 12:51 | NUR ---
Pt resting in bed upon arrival. Pt expresses frustration regarding not receiving meals. Assessed Pt's understanding of ST recommendations and the consequences of continuing to eat. Discussed the option for G-Tube placement. Pt V/U of consequnces of continued PO intake and states "If I eat and drink I might dye sooner". Offered therapeutic listening as Pt expresses his wishes to not have a G-Tube placed. Pt discusses his values including the importance of eating and drinking when he wants. Pt reports his quality of life has greatly diminished and states "I'm 85 years old, and I've lived a hell of a life". Discussed the option for comfort care. Educated on comfort care philosophy with V/U made by Pt. Pt elects to pursue comfort care. Pt expresses no other concerns at this time. Spoke with Bedside RN Ricardo and discussed case. Spoke with Dr Banda and discussed case. Placed orders for comfort care, comfort care order set, and D/C maintenance medications per V/O from Dr Banda. Palliative Care will remain available for symptom management and supportive visits.
--- NOTE | 2020-09-18 18:45 | NUR ---
SHIFT SUMMARY. PT TRANSITIONED TO COMFORT CARE TODAY AFTER SPEAKING WITH DR. KINGSLEY AND PALLITIVE CARE RN JUNIOR ABOUT THE RISKS AND BENIFITS OF TAKING PO INTAKE AFTER FAILING SWALLOW EVAL. PT IS CHOOSING QUALITY OF LIFE AT THIS TIME. PT'S MOOD HAS IMPROVED DRAMATICALLY SINCE NPO ORDER HAS LIFTED. PT C/O H/A AND BURNING SENSATION IN STOMACH, DR. KINGSLEY NOTIFIED AND RECIEVED ORDERS FOR ONE TIME DOSE OF FENTANYL AND TO START THE PT ON IV PROTONIX, SYMPTOMS RESOLVED. NO OTHER CHANGES OR CONCERNS.
--- NOTE | 2020-09-19 04:34 | NUR ---
PAY STATION COLLECTOR SUMMARY PT COMFORT CARE STATUS. SLEPT ON AND OFF TONIGHT. STATES HE COULDN'T GET MUCH SLEEP DUE TO STEROIDS HE'S BEEN RECIEVING. VERY PLEASANT AND COOPERATIVE. DENIES PAIN, SOB, NAUSEA. NO ACUTE CHANGES.
--- NOTE | 2020-09-19 09:21 | NUR ---
Comfort Care Visit Pt resting in bed upon arrival. Pt reports mild but manageable discomfort in his abdomen. Pt reports no other concerns at this time. Palliative Care will remain available.
--- NOTE | 2020-09-19 18:19 | NUR ---
SHIFT SUMMARY. A&OX4, INDEPENDENT TO BSC, PLEASANAT AND COOPERATIVE WITH CARE. PT DENIES PAIN, SOB, N/V. PT CONTINUES WITH 2L O2 NC WHICH PT REPORTS IS HIS BASELINE. NO OTHER CHANGES OR CONCERNS.
--- NOTE | 2020-09-19 21:04 | NUR ---
PT STATED HE IS FEELING CONSTIPATED. MIRALAX GIVEN.
--- NOTE | 2020-09-20 04:42 | NUR ---
CONTAINER WASHER MACHINE SUMMARY PT IS A/O. DENIED NAUSEA, SOB. PT STATED HE HAD PAIN IN ABD AND FEELS CONSTIPATED. MIRALAX GIVEN. CONTINUES TO BE ON 2L O2 VIA NC WHICH IS PT'S BASELINE. PT USES BSC INDEPENDENTLY. SLEPT MOST OF THE NIGHT. USES CALL LIGHT APPROPRIATELY. NO ACUTE CHANGES, CALL LIGHT WITHIN REACH.
--- NOTE | 2020-09-20 15:45 | NUR ---
Spiritual care note: Mr. Mattson was Irritable and complained of constant pain. He is also very [place], so conversation difficult. He lives alone with one friend who checks on him. I am concerned with d/c home alone. He did not want lengthy visit and declined prayer. I asked Palliative Care RN to follow for symptom management.
--- NOTE | 2020-09-20 15:51 | NUR ---
Met with pt this am, and he tells me he is in chronic pain and experiencing severe constipation. Contacted his nurse, who gave pt roxanol and a soapsuds enema. Pt did state some constipation and paiin relief. Planning a 2nd visit today this afternoon, as he doesn't appear to be open to talking at this time.
--- NOTE | 2020-09-20 17:10 | NUR ---
SHIFT SUMMARY PATIENT ALERT AND ORIENTED THROUGHOUT THIS SHIFT. PATIENT IS INDEPENDENT TO THE BEDSIDE COMODE. PATIENT STATES FEELING CONSTIPATED AND IS PAINFUL IN THE ABDOMEN DUE TO THE CONSTIPATION. PATIENT MEDICATED FOR PAIN. PATIENT PROVIDED WITH AN ENEMA PER PATIENT REQUEST. PATIENT ONLY ABLE TO RECEIVE A SMALL AMOUNT OF ENEMA. ONLY MINIMAL RESULTS INITIALLY FROM ENEMA, WITH FURTHER SMALL BM A SHORT TIME LATER. PATIENT STATES PAIN MOSTLY RESOLVED. PATIENT LAYING IN BED THROUGH MUCH OF THIS SHIFT. PATIENT COOPERATIVE WITH CARE AND DENIES ADDITIONAL NEEDS.
--- NOTE | 2020-09-21 04:47 | NUR ---
SHIFT SUMMARY: COMFORT CARE STATUS. PT AAOX3. ABLE TO COMMUNICATE NEEDS. 02 96% ON 2L VIA NC. RESPS REGULAR, NON-LABORED AT REST. NO COUGHING NOTED. DENIES PAIN TONIGHT. APPEARS TO HAVE SLEPT WELL. UP INDEPENDENTLY TO BSC. WCTM.
--- NOTE | 2020-09-21 17:29 | NUR ---
pt complaining of continued constipation. Pt also states having a little more genral pain today and poor tolerance of eating it makes him cramp. He also states he has hardly voided and he hurts when he voids. Order for fleets enema, assisted nurse with enema pt placed on side in reverse trendelenberg, digital exam large amount of soft stool in rectum removed small amount. pt was able to hold enema for about five minutes then had a very large BM most was soft some hard intermitant stools present. Got pt to drink a large glass of gatorade. Put him in attends not upllups he has scrotal swelling and chafing attends fit him better skin barrier cream to anal area and scrotum. Called Hopsitalis and adjusted bowel medications, Got him some compazine was able to get him to eat a pudding. Will monitor his hydration and adust bowel protocol to match his po intake and narcotic use. pt not eminent but increasing frailty.
--- NOTE | 2020-09-21 17:29 | NUR ---
SHIFT SUMMARY PATIENT ALERT AND ORIENTED THIS SHIFT. PATIENT IS INDEPENDENT TO THE BEDSIDE COMODE. PATIENT STATES CONTINUED CONSTIPATION. FLEET ENEMA ORDERED. PATIENT HAD A LARGE BM AFTER ADMINISTRATION OF FLEET ENEMA. PATIENT MEDICATED FOR PAIN IN RECTUM AFTER BM. PATIENT CURRENTLY SITTING UP IN BED RESTING, WATCHING TELEVISION.
--- NOTE | 2020-09-22 04:21 | NUR ---
SHIFT SUMMARY NO ACUTE CHANGES TO REPORT THIS SHIFT. PT HAS DENIED PAIN OR NEEDS THIS SHIFT. PT A/OX4, PLESANT WITH CARE. COMFORT MEASURES IN PLACE, COMFORT ASSESSED T/O SHIFT. PT MOSTLY INDEPENDENT IN THE ROOM. NEEDS MINIMAL ASSISTANCE WITH ADLS. TAKES HIS MEDS CRUSHED IN PUDDING WITHOUT DIFFICULTY. ASPIRATION PRECAUTIONS MAINTAINED. BED IN LOWEST POSITION, CALL LIGHT WITHIN REACH.
--- NOTE | 2020-09-22 10:51 | NUR ---
Comfort Care Visit Pt resting in bed with his eyes closed. Pt appears comfortable with no S/S of distress at this time. Palliative Care will remain available.
--- NOTE | 2020-09-22 19:14 | NUR ---
PT RESTING IN BED AFTER DINNER. PT MAKES NO COMPLAINTS AT THIS TIME. Q2 COMFORT CARE ASSESSMENTS COMPLETED. PT IND. IN ROOM. BED IN LOW POSITION AND CALL LIGHT WITHIN REACH. STAFF WILL CONT TO MONITOR.
--- NOTE | 2020-09-23 04:18 | NUR ---
ADOBE DEVELOPER SUMMARY A/0 X3, PLEASANT AND COOPERATIVE WITH CARE. DENIES PAIN OR SOB. INDEPENDENT TO BSC. DENIES NEEDS AT THIS TIME. BED IN LOWEST POSITION WITH CALL LIGHT IN REACH. WILL CONTINUE TO MONITOR AND REPORT TO ONCOMING RN.
[2020-09-23] MEDS ORDERED: PANT40 PO (08:15)
[2020-09-23] MEDS ORDERED: Q-Tussin100 MG/5 M PO (08:15)
--- NOTE | 2020-09-23 11:09 | NUR ---
PT WAS DISCHARGED VIA WHEELCHAIR, WITH BELONGINGS AT SIDE AND DISCHARGE INSTRUCTIONS. PT'S MEDICATIONS WERE FAXED OVER TO THE PHARMACY AND HARD COPIES WERE PROVIDED. PT WAS ABLE TO VERBALIZE AND TEACH BACK DISHARGE INTRUCTIONS. PT IV WAS DC'S AND WNL. PT WAS MET AT THE [facility] BY FAMILY/FRIEND WHO WILL BE ASSISTING WITH HOSPICE HOME HEALTH DISCHARGE PLANS.
== END 2020-09-23 10:26 | disposition hospice, home (50) ==
LOC: ER 12:54 → MEDS 12:55 → ER 23:13 → MEDS 23:15
PROVIDERS: Emergency Medicine; Family Medicine; Internal Medicine; ADMIT Internal Medicine
DX: J96.21 Acute and chronic respiratory failure with hypoxia (principal); J44.1 Chronic obstructive pulmonary disease with (acute) exacerbation; J44.0 Chronic obstructive pulmonary disease with (acute) lower respiratory infection; J20.9 Acute bronchitis, unspecified; I25.10 Atherosclerotic heart disease of native coronary artery without angina pectoris; I10 Essential (primary) hypertension; I25.2 Old myocardial infarction; F17.210 Nicotine dependence, cigarettes, uncomplicated; E78.5 Hyperlipidemia, unspecified; E86.0 Dehydration; E87.1 Hypo-osmolality and hyponatremia; Z99.81 Dependence on supplemental oxygen
CPT/HCPCS: 36415; 71046; 74230; 80048; 80053; 81001; 83690; 83735; 83880; 84484; 85025; 85027; 92610; 92611; 93005; 93010; 94640; 94667; 94760; 96365; 96372; 96375; 96376; 97110; 97129-GO-CO; 97130-GO-CO; 97162; 97165; 97530; 99285-25; A9270; C9113; G0008; G0378; J0456; J1650; J2930; J3010; J7030; J7050; J7512; Q0164; Q2038